=== PATIENT | male | born 1965 | race Caucasian/White ===

== ENCOUNTER 2025-02-17 07:44 | Outpatient (CLI) | payer BC ==
[2025-02-17 08:42] LABS: Hematocrit 46.7 % (38.8-50.0); Hemoglobin 16.0 g/dL (13.5-17.5); Mean Corpuscular Hemoglobin 33.5 pg (27.0-33.0); Mean Corpuscular Volume 97.7 fL (81.2-95.1); Platelet Count 211 10x3/uL (150-450); Red Blood Cell (RBC) Count 4.78 10x6/uL (4.32-5.72); White Blood Cell (WBC) Count 8.67 10x3/uL (3.5-10.5)
[2025-02-17 08:56] LABS: INR-International Normal Ratio 1.0; PTT 25.7 sec (22.0-33.0); Prothrombin Time 11.2 sec (9.5-12.1)
[2025-02-17 08:59] LABS: Anion Gap 14 mmol/L (10-20); BUN (Urea Nitrogen) 13 mg/dL (8.4-25.7); Calc. Creatinine Clearance 0 mL/min (70-130); Calcium 9.3 mg/dL (7.8-10.44); Carbon Dioxide 25 mmol/L (23-31); Chloride 104 mmol/L (98-107); Glucose 164 mg/dL (80-115); Potassium 4.1 mmol/L (3.5-5.1); Sodium 139 mmol/L (136-145)
== END 2025-02-17 07:45 | disposition home or self-care (01) ==
LOC: CSHLAB 07:44
PROVIDERS: ATTEND Surgery
DX: Z01.818 Encounter for other preprocedural examination (principal); K80.20 Calculus of gallbladder without cholecystitis without obstruction
CPT/HCPCS: 80048; 85027; 85610; 85730; 93005; 93010